=== PATIENT | female | born 1985 | race American Indian/Alaskan Native ===

== ENCOUNTER 2022-07-24 02:12 | Outpatient (CLI) | payer OTHER, SELFPAY ==
[2022-07-22 15:35] VITALS: BMI 40.5
--- NOTE | 2022-07-22 15:35 | PC.NURSE ---
Pre Radiology instructions Report to the Outpatient Waiting Room, entrance under the green pavilion located off [facility], at time _0630_ on date _[id number]_. Procedure Time: _. One visitor will be allowed to accompany the patient into the hospital. The visitor will be instructed to remain with patient at all times or leave the building due to restrictions. We will allow the visitor to come back to the postoperative area when patient is ready. NO children visitors allowed at this time. You and your visitor will be asked to self-screen and do not enter if you have any COVID symptoms. A mask is required within the hospital. Patients are to have no food or drink 6 hours prior to procedure time Driving will be restricted after the procedure, you must have a person to drive you home. Labs will be drawn in preop area and once reviewed, you will be taken to radiology area for procedure. When the procedure is completed, you will be taken to outpatient where you will be monitored for several hours. You may have one visitor in this area. Other than holding anti-coagulants, patient may take other medication(s) as scheduled. Prior to your appointment date patients are instructed to hold anti-coagulants after discussing with ordering provider to stop. If unable to discontinue anti-coagulants please notify radiologist. No aspirin or warfarin (Coumadin) for 7 days prior to the procedure. No clopidogrel (Plavix), ticagrelor (Brilinta), prasugrel (Effient) or dabigatran (Pradaxa) for 5 days prior to the procedure. No rivaroxaban (Xarelto), apixaban (Eliquis), dipyridamole (Aggrenox or Persantine) or cilostazol (Pletal) for 2 days prior to the procedure. Medications to discontinue per physician: ___None Date to take last dose: Please leave all valuables, including medications, at home the day of procedure. The hospital will not accept responsibility for valuables. Wear comfortable, loose fitting clothing. Follow any additional instructions given to you from ordering provider. Telephone instructions given to __Patient and asked if any additional questions and then verbalized understanding. Patient advised to call scheduling provider office or registration scheduling [phone] if any additional questions.
[2022-07-24] VITALS (7 sets, daily range): BP systolic 116–152; BP diastolic 70–96; PULSE 54–87; RESP 16–20; TEMP 36.6; O2SAT 98–100
--- NOTE | ~2022-07-24 | XR_ITS ---
EXAMINATION: XR lumbar puncture diagnostic DATE: 07/24/2022 09:05 INDICATION: Acute intractable headache. TECHNIQUE: The procedure including the risks, benefits, and alternatives was discussed with the patie nt. Risks discussed included spinal headache, cerebrospinal fluid leak, bleeding, and infection. The patient understood the risks and agreed to proceed. A timeout was performed to verify the patient' s name, date of , and procedure to be performed. The skin overlying the L3-L4 level was prepped and draped in usual sterile fashion. Subcutaneous 1% lidocaine was used for local anesthesia. A 20 gauge spinal needle was advanced under fluoroscopic guidance. The needle was removed and the entry s ite was cleaned and dressed. There were no immediate complications. Fluoroscopy exposure time was 0. 0 minutes. The total number of images was 1. FINDINGS: Real-time fluoroscopy demonstrates the needle at the L3-L4 level. The opening pressure was 27 cm water (Normal range is variably defined as 6-20 cm water and up to 25 cm water in obese patient s. Pressure >25 cm water is one of the modified Dandy criteria for idiopathic intracranial hypertensi on). 13 mL of clear, colorless fluid was collected in 4 tubes. IMPRESSION: 1. Successful fluoro-guided lumbar puncture. 2. Elevated opening pressure. Reviewed, dictated and finalized at location A.
[2022-07-24 07:25] LABS: Mean Platelet Volume 8.9 fl (7.4-10.4); Platelet Count Result 313 k/mm3 (150-375)
[2022-07-24 07:52] LABS: Prothrombin Time 12.8 Seconds (11.1-14.7)
[2022-07-24 09:05] LABS: Glucose CSF 61 mg/dL (40-70); Total Protein CSF 44 mg/dL (12-60)
--- NOTE | 2022-07-24 09:30 | SUR.PHASEII ---
0910 - pt requesting food and ketoralac for headache. dr. rosario called and orders received.
[2022-07-24 09:44] LABS: Appearance CSF Clear (Clear); CSF source CSF; Color CSF Colorless (Colorless)
[2022-07-24] MEDS: KETOROLAC 10 MG TABLET PO (09:49)
[2022-07-24 09:51] LABS: Nucleated Cell CSF 1 /uL (0-5); Red Blood Cell CSF 0 (0-2)
[2022-07-24 09:57] LABS: Monocytes CSF 6 % (15-45)
[2022-07-24 09:58] LABS: Lymphocytes CSF 94 % (40-80)
[2022-07-25 21:57] LABS: Cryptococcus Antigen Not Detected (Not Detected); Cryptococcus Specimen Source CSF
== END 2022-07-24 11:00 | disposition home or self-care (01) ==
PROVIDERS: PCP Internal Medicine; Visit Provider Radiology Diagnostic Radiology
PROC: 009U3ZZ Drainage of Spinal Canal, Percutaneous Approach (ICD-10-PCS; CPT 62328; principal; 2022-07-24 08:30)
DX: R51.9 Headache, unspecified (principal)
CPT/HCPCS: 36415; 62328; 82945; 84157; 85049; 85610; 86403; 87070; 89051; A9270